=== PATIENT | female | born 1965 | race Caucasian/White ===

== ENCOUNTER 2018-02-24 00:22 | Emergency (ER) | payer SELFPAY ==
[2018-02-24 00:33] VITALS: BP 109/71; PULSE 60; TEMP 97.7; BMI 21.8
--- NOTE | 2018-02-24 01:11 | PDOC ---
History of Present Illness - General Chief Complaint: Injury Stated Complaint: LAC LT HAND Time Seen by Provider: 02/24/18 00:25 - History of Present Illness Initial Comments: This otherwise healthy 52-year-old woman presents with a small laceration in the interspace between her fourth and fifth fingers of the left hand. Patient sustained this laceration just prior to presentation when she was attempting to cut frozen duck fat with table knife. She describes a knife as not having a sharp point and skin was cut without deep stab occurring. There was some bleeding which was controlled with direct pressure. There is no numbness or weakness in the finger. No other injury sustained. Patient had last tetanus prophylaxis immunization 4 years ago (administered here after fingertip avulsion ). No history of poor wound healing/resistant organism colonization or infection. Past History - Past Medical History Allergies/Adverse Reactions: Allergies Allergy/AdvReac Type Severity Reaction Status Date / Time Penicillins Allergy Verified 07/26/14 15:16 Home Medications: Ambulatory Orders NK [No Known Home Medication] 02/24/18 COPD: No Psychiatric Problems: Yes (ANXIETY) - Immunization History Immunization Up to Date: Yes - Suicide/Smoking/Psychosocial Hx Smoking History: Never smoked Have you smoked in the past 12 months: No Hx Alcohol Use: Yes (SOCIAL) Substance Use Type: None Review of Systems - Review of Systems Able to Perform ROS?: Yes Comments:: 12 point review of systems is negative except for what is noted in the history of present illness *Physical Exam - Vital Signs Last Vital Signs Temp Pulse Resp BP Pulse Ox 97.7 F 60 16 109/71 100 02/24/18 00:27 02/24/18 00:27 02/24/18 00:27 02/24/18 00:27 02/24/18 00:27 - Physical Exam Comments: GENERAL: Adult female, alert and oriented 3, in no acute distress EXTREMITIES: Normal range of motion, no edema. No clubbing or cyanosis. No erythema, or tenderness. NEUROLOGICAL: Cranial nerves II through XII grossly intact. Normal speech. No focal neurological deficits. MUSCULOSKELETAL: Back non-tender to palpation, no CVA tenderness SKIN: Warm, Dry, normal turgor, no rashes noted. Left hand - Half cm stellate, nonbleeding, partial-thickness laceration in the interspace between fourth and fifth fingers Fourth finger and fifth finger have full mobility and sensory functioning 3 mm x 3 mm superficial skin abrasion dorsum of the mid phalanx, fifth finger No other injury evident Procedures - Laceration/Wound Repair Left Dorsal Finger 4th digit Wound Length: to 2.5 cm Wound Explored: clean Wound's Depth, Shape: stellate Irrigated w/ Saline: Yes Betadine Prep: No (Hibiclens/ethanol) Wound Repaired With: Dermabond *DC/Admit/Observation/Transfer Diagnosis at time of Disposition: Laceration of left little finger Qualifiers: Encounter type: initial encounter Damage to nail status: without damage Foreign body presence: without foreign body Qualified Code(s): S61.217A - Laceration without foreign body of left little finger without damage to nail, initial encounter - Discharge Dispostion Disposition: HOME Condition at time of disposition: Stable - Referrals Referrals: Ly Chambers [Primary Care Provider] - - Patient Instructions Printed Discharge Instructions: DI for Laceration Repair With Dermabond Additional Instructions: Keep wounds dry overnight Bacitracin/Neosporin to avulsion wound daily Return or see your doctor if area becomes red/swollen/painful - Post Discharge Activity
== END 2018-02-24 01:30 | disposition home or self-care (01) ==
LOC: FER 00:22
PROC: 0HQGXZZ Repair Left Hand Skin, External Approach (ICD-10-PCS; principal; 2018-02-24)
DX: S61.217A Laceration without foreign body of left little finger without damage to nail, initial encounter (principal); W26.0XXA Contact with knife, initial encounter; Y93.G3 Activity, cooking and baking; Y92.009 Unspecified place in unspecified non-institutional (private) residence as the place of occurrence of the external cause
CPT/HCPCS: 99281-25